=== PATIENT | male | born 1950 | race Caucasian/White ===

== ENCOUNTER 2021-08-11 14:32 | Emergency (ER) | payer OTHER ==
[~2021-08-11] VITALS: Ht 177.8 cm; Wt 108.9 kg
[2021-08-11] MEDS ORDERED: HYDROCODONE/ACETAMINOPHEN 10/325 MG TAB PO ONE (15:30)
[2021-08-11] MEDS ORDERED: KETOROLAC 15MG/ML VIAL (15MG/ML) IV ONE (15:30)
[2021-08-11] MEDS ORDERED: IBUP-2070 PO (17:58)
[2021-08-11] MEDS ORDERED: ACET-2079 PO (17:58)
[2021-08-11 18:11] VITALS: BP 138/79
== END 2021-08-11 18:18 | disposition home or self-care (01) ==
LOC: EDH 14:32
DX: S82.142A Displaced bicondylar fracture of left tibia, initial encounter for closed fracture (principal); S63.502A Unspecified sprain of left wrist, initial encounter; S20.212A Contusion of left front wall of thorax, initial encounter; X58.XXXA Exposure to other specified factors, initial encounter; Y93.89 Activity, other specified; Y92.89 Other specified places as the place of occurrence of the external cause; Y99.8 Other external cause status
CPT/HCPCS: 29505; 71045; 73110; 73562; 73700; 99284; J1885